=== PATIENT | female | born 1975 | race Caucasian/White ===

== ENCOUNTER → 2018-02-22 00:19 | Outpatient (CLI) | payer BC, SELFPAY ==
--- NOTE | 2018-02-22 07:34 | DI.REPORT_ITS ---
SYMPTOM/DIAGNOSIS: SCREENING, Z12.31, ANNUAL PHYSICAL EXAM Z00.00 BILATERAL SCREENING MAMMOGRAM: Mammograms were interpreted according to the usual protocol including computer analysis with CAD system, tomosynthesis and C view imaging. Comparison is made with 2016. The breasts are composed of scattered fibroglandular densities. Breast density category B. No suspicious masses or suspicious microcalcifications are seen. There has been no significant change. IMPRESSION: Category 1-B, negative mammogram. Routine screening is recommended. [facility] ASSESSMENT OF FINDINGS: Negative. Category 1. Patient will receive a letter notifying them of these results. BI-RADS category B. There are scattered areas of fibroglandular density.
--- NOTE | 2018-02-22 09:36 | DI.REPORT_ITS ---
SYMPTOM/DIAGNOSIS: NEW ONSET DYSMENORRHEA, MENORRHAGIA, EVALUATE FOR OVARIAN CYSTS FIBRO. PELVIC ULTRASOUND: Transabdominal and transvaginal exams were performed. The uterus measures 11.0 x 4.6 x 6.2 cm. The endometrial stripe measures 7 mm in thickness. There are 2 small uterine fibroids measuring 2.2 and 3.6 cm in greatest dimension. An 18 mm cyst vs involuting follicle is seen on the left ovary. Small Nabothian cysts and endometrial calcifications ae seen. There is no evidence of free fluid or hydronephrosis. IMPRESSION: Small uterine fibroids. Small involuting follicle of the left ovary.
== END ==
PROVIDERS: PCP Nurse Practitioner Family; Visit Provider Nurse Practitioner Family
DX: Z00.00 Encounter for general adult medical examination without abnormal findings (principal); Z12.31 Encounter for screening mammogram for malignant neoplasm of breast; N94.6 Dysmenorrhea, unspecified; N92.0 Excessive and frequent menstruation with regular cycle; D25.9 Leiomyoma of uterus, unspecified; N83.02 Follicular cyst of left ovary
CPT/HCPCS: 77063; 77067; 76830; 76856

== ENCOUNTER → 2018-02-22 01:37 | Outpatient (CLI) | payer BC, SELFPAY ==
[2018-02-22 08:45] LABS: Abs Immature Grans 0.01 k/cumm (0.0-0.09); Absolute Basophil Count 0.06 k/cumm (0.0-0.2); Absolute Eosinophil Count 0.34 k/cumm (0.0-0.7); Absolute Lymphocyte Count 2.41 k/cumm (1.2-3.4); Absolute Monocyte Count 0.64 k/cumm (0.11-0.7); Absolute Neutrophil Count 4.56 k/cumm (1.2-6.7); Basophils % 0.7; Eosinophils % 4.2; HGB 14.7 g/dL (12.0-15.5); Immature Grans % 0.1; Mean Corpuscular Volume 85.7 fL (80-95); Mean Platelet Volume 8.9 fL (8.0-11.0); Platelet Count 348 x1000/uL (130-400); RBC Distribution Width 13.2 % (11.7-14.6); White Blood Cell Count 8.02 k/cumm (4.4-10.8)
[2018-02-22 10:04] LABS: Anion Gap 13.1 mmol/L (3-11); BUN 17 mg/dL (7-18); CO2 24.9 mmol/L (21.0-32.0); CREATININE 0.81 mg/dL (0.55-1.02); Calcium 8.9 mg/dL (8.5-10.1); Chloride 102 mmol/L (98-107); Cholesterol 230 mg/dL (50-200); Glucose 88 mg/dL (70-100); HDL Cholesterol 61 mg/dL (40-60); LDL CHOLESTEROL 148 mg/dL (<100); Potassium 4.4 mmol/L (3.5-5.1); Sodium 140 mmol/L (136-145); TSH (W/Ref FT4) 1.48 uIU/mL (0.358-3.74); Triglyceride 92 mg/dL (30-150)
== END ==
PROVIDERS: PCP Nurse Practitioner Family; Visit Provider Nurse Practitioner Family
DX: Z00.00 Encounter for general adult medical examination without abnormal findings (principal); R53.83 Other fatigue
CPT/HCPCS: 36415; 80048; 80061; 83721; 84443; 85025

== ENCOUNTER 2018-06-11 11:49 | Outpatient (REF) | payer BC, SELFPAY ==
[2018-06-14 13:38] LABS: Chlamydia Result Negative; GC Result Negative; Specimen Description CERVIX
== END 2018-06-11 12:09 ==
LOC: LBN 11:49
PROVIDERS: PCP Nurse Practitioner Family; Visit Provider Nurse Practitioner Women's Health
DX: Z11.3 Encounter for screening for infections with a predominantly sexual mode of transmission (principal)
CPT/HCPCS: 87491; 87591

== ENCOUNTER 2019-03-23 01:27 | Outpatient (CLI) | payer BC, SELFPAY ==
--- NOTE | 2019-03-24 16:35 | NS.NUTBLAN_ITS ---
DESCRIPTION: Marielle Rollins presents for nutrition consult for hyperlipidemia although she states she would also like to lose weight. Self reports weight 150 pounds, height 64.5 BMI 25.3 Marielle reports cardiovascular risks as borderline hypertension, high cholesterol, overweight, high stress with 3 teens at home, and limited regular physical activity. Marielle reports weight management attempts with restricting sugar, carb and dairy. She has toast with butter/peanut butter and coffee with almond milk and flavored sweetener. Lunch: salad or progresso light soup; supper: chicken stir serna with 1 cup vegetables, 1 cup brown rice. She cooks meatless meal 1 night/week. She has popcorn with M&Ms if they watch a movie, once a week. She has an alcoholic beverage about twice a month when she goes out for dinner. She reports no regular physical activity at this time as her days are too full. ASSESSMENT/INTERVENTION: aMrielle is well informed about healthy eating and practices this feeding her family. Discussed stopping weight gain as first goal. Explained cardiovascular risks factors; cholesterol interpretation. Described and reviewed DASH and Mediterranean food plans. Discussed physical activity and ways to encorporate it into her regular day. PLAN: Marielle will increase vegetables to 2.5 cups daily; decrease butter at breakfast. consider alternative to coffee flavor in AM attempt increased physical activity while watching sports. She will be in touch in a month if this plan is not working for her.
== END 2019-03-23 01:47 ==
PROVIDERS: PCP Nurse Practitioner Family; Visit Provider Dietitian, Registered
DX: E78.5 Hyperlipidemia, unspecified (principal); Z71.3 Dietary counseling and surveillance
CPT/HCPCS: 97802

== ENCOUNTER 2019-04-06 00:55 | Outpatient (CLI) | payer BC, SELFPAY ==
--- NOTE | 2019-04-06 17:00 | DI.MAMMO_ITS ---
EXAM: MAMMO SCREENING CLINICAL HISTORY: screening z12.31,,. TECHNIQUE: Mammograms were interpreted according to the usual protocol including computer analysis w [employer] CAD system, tomosynthesis and C-view imaging. COMPARISON: Comparison is made with prior images. FINDINGS: The breast tissue is of moderate radiodensity. There is no evidence of a mass. There are no suspiciou s calcifications and there has been no significant interval change when compared with prior images. IMPRESSION: No evidence of malignancy, category 1. Yearly screening mammography is recommended. BI-RADS category B. BI-RADS Cat 1 - Negative. Breast Density - Category B - Scattered areas of fibroglandular density.
== END 2019-04-06 01:15 ==
PROVIDERS: PCP Nurse Practitioner Family; Visit Provider Nurse Practitioner Family
DX: Z12.31 Encounter for screening mammogram for malignant neoplasm of breast (principal)
CPT/HCPCS: 77063; 77067

== ENCOUNTER 2019-08-26 13:25 | Outpatient (REF) | payer BC, SELFPAY | END 2019-08-26 13:45 | LOC: LBN 13:25 | PROVIDERS: PCP Nurse Practitioner Family; Visit Provider Nurse Practitioner Family | DX: J06.9 Acute upper respiratory infection, unspecified (principal) | CPT/HCPCS: 87449 ==

== ENCOUNTER 2020-07-04 02:26 | Outpatient (CLI) | payer BC, SELFPAY ==
[2020-07-04 08:54] LABS: Anion Gap 6.4 mmol/L (3-11); BUN 17 mg/dL (7-18); CO2 28.6 mmol/L (21.0-32.0); CREATININE 0.88 mg/dL (0.55-1.02); Calcium 8.6 mg/dL (8.5-10.1); Calculated LDL 158 mg/dL (<100); Chloride 105 mmol/L (98-107); Cholesterol 246 mg/dL (<200); Glucose 98 mg/dL (74-106); HDL Cholesterol 69 mg/dL (40-60); Potassium 4.5 mmol/L (3.5-5.1); Sodium 140 mmol/L (136-145); Triglyceride 98 mg/dL (<150)
[2020-07-04 09:33] LABS: Hemoglobin A1C 5.5 % (<5.7)
== END 2020-07-04 02:46 ==
PROVIDERS: PCP Nurse Practitioner Family; Visit Provider Nurse Practitioner Family
DX: E78.5 Hyperlipidemia, unspecified (principal)
CPT/HCPCS: 36415; 80048; 80061; 83036

== ENCOUNTER 2020-07-09 01:22 | Outpatient (CLI) | payer BC, SELFPAY ==
--- NOTE | 2020-07-10 11:47 | DI.MAMMO_ITS ---
EXAM: MAMMO SCREENING CLINICAL HISTORY: SCREENING,Z12.39 TECHNIQUE: Mammograms were interpreted according to the usual protocol including computer analysis w [employer] CAD system, tomosynthesis and C-view imaging. COMPARISON: 2015 through 2018 FINDINGS: The breasts are composed of scattered fibroglandular densities, Breast Density category B. No suspicious masses or suspicious microcalcifications are seen. No skin thickening or abnormal axillary lymph nodes are seen. There has been no significant change from prior exams. IMPRESSION: BI-RADS Category 1, Negative mammogram Yearly screening mammography is recommended. Breast Density - Category B, scattered fibroglandular densities. A negative radiographic report should not delay biopsy if a dominant or clinically suspicious mass is present. Up to ten percent of cancers are not identified on mammography. A negative report may reinforce clinical impression. Adenosis and dense breasts may obscure an underlying neoplasm. False positive reports average 6 to 10%. Patient will receive a letter notifying them of these results.
== END 2020-07-09 01:42 ==
PROVIDERS: PCP Nurse Practitioner Family; Visit Provider Nurse Practitioner Family
DX: Z12.31 Encounter for screening mammogram for malignant neoplasm of breast (principal)
CPT/HCPCS: 77063; 77067

== ENCOUNTER 2020-08-13 08:56 | Outpatient (CLI) | payer BC, SELFPAY ==
[2020-08-14 12:35] LABS: COVID-19 RT-PCR UVMMC Result Negative (Negative)
== END 2020-08-13 09:16 ==
PROVIDERS: PCP Nurse Practitioner Family; Visit Provider Nurse Practitioner Family
DX: Z11.52 Encounter for screening for COVID-19 (principal); J02.9 Acute pharyngitis, unspecified
CPT/HCPCS: U0003

== ENCOUNTER 2020-08-28 07:30 | Outpatient (CLI) | payer BC, SELFPAY ==
[2020-08-29 13:28] LABS: COVID-19 RT-PCR UVMMC Result Negative (Negative)
== END 2020-08-28 07:31 | disposition home or self-care (01) ==
LOC: LBO 07:31
PROVIDERS: PCP Nurse Practitioner Family; Visit Provider Nurse Practitioner Family
DX: Z20.822 Contact with and (suspected) exposure to COVID-19 (principal)
CPT/HCPCS: U0003

== ENCOUNTER 2020-09-14 03:40 | Outpatient (CLI) | payer BC, SELFPAY ==
[2020-09-15 14:06] LABS: COVID-19 RT-PCR UVMMC Result Negative (Negative)
== END 2020-09-14 03:41 | disposition home or self-care (01) ==
LOC: LBO 03:40
PROVIDERS: PCP Nurse Practitioner Family; Visit Provider Nurse Practitioner Family
DX: Z20.822 Contact with and (suspected) exposure to COVID-19 (principal)
CPT/HCPCS: U0003

== ENCOUNTER 2021-01-31 14:44 | Outpatient (REF) | payer BC, SELFPAY ==
[2021-02-02 13:01] LABS: COVID-19 RT-PCR UVMMC Result Negative (Negative)
== END 2021-01-31 14:45 | disposition home or self-care (01) ==
LOC: LBN 14:44
PROVIDERS: PCP Nurse Practitioner Family; Visit Provider Physician Assistant
DX: Z20.822 Contact with and (suspected) exposure to COVID-19 (principal)
CPT/HCPCS: U0003

== ENCOUNTER 2021-07-11 02:19 | Outpatient (CLI) | payer BC, SELFPAY ==
--- NOTE | 2021-07-11 07:50 | DI.MAMMO_ITS ---
Exam(s) MAMMO SCREENING EXAM: MAMMO SCREENING CLINICAL HISTORY: screening,z12.39. TECHNIQUE: Bilateral full field digital CC and MLO mammographic images were obtained with 3D tomosyn thesis and utilizing computer aided detection (CAD). COMPARISON: Prior mammograms dating back to 2016, the most recent being June 2020. FINDINGS: There has been no significant change in the appearance and distribution of the fibroglandular tissue. Asymmetric tissue laterally in the left breast is unchanged from prior studies. There are no new spiculated masses nor malignant appearing microcalcification groups. There is no significant architectural distortion nor skin thickening-retraction. IMPRESSION: No radiographic evidence of malignancy. BI-RADS Category 1 - Negative Breast Density - Category B - Scattered areas of fibroglandular density Breast density Category C or D implies that the patient has dense breast tissue. Dense breast tissue can make it harder to find cancer on a mammogram. Dense breast tissue is also associated with an incr eased risk of breast cancer. This information about the result of the mammogram report was provided to the patient to raise their awareness. Use this report when you speak with the patient about their risks for breast cancer, which includes their family history. At that time, you may recommend additional screening tests (Ultrasoun d or MRI) as these tests may add significant information. A negative radiographic report should not delay biopsy if a dominant or clinically suspicious mass is present. Up to ten percent of cancers are not identified on mammography. A negative report may reinforce clinical impression. Adenosis and dense breasts may obscure an underlying neoplasm. False positive reports average 6 to 10%. Patient will receive a letter notifying them of these results.
== END 2021-07-11 02:39 ==
PROVIDERS: PCP Nurse Practitioner Family; Visit Provider Nurse Practitioner Family
DX: Z12.31 Encounter for screening mammogram for malignant neoplasm of breast (principal)
CPT/HCPCS: 77063; 77067

== ENCOUNTER 2021-07-15 13:57 | Outpatient (REF) | payer BC, SELFPAY ==
--- NOTE | 2021-07-15 13:10 | PAPFT_PTH ---
PATIENT: Marielle Rollins LOC: [facility] U#:[id number] AGE/SX: 45/F ROOM: RE07/15/[address]: Emani Oreilly NP : 1975 BED: DIS: 07/15/2021 SPEC #: [id number] RECD: 07/15/21 18:31 STATUS: LAKEMichael LEON #: [id number] TOPHER: 07/15/21 13:[address]: Emani Oreilly NP DEPT: [facility] Cytology RECD BY: Natalee Ignacio ENTERED: 07/15/21 18:31 SP TYPE: PAPFT OTHR DR: Beth Coles, BILINGUAL TRAINER Tissues: 1 - CX/ENDOCX FOR PAP SMEARS Procedures: PAP THIN PREP/UVM Screening HPV DNA PROBE Comments: [id number]
== END 2021-07-15 13:58 | disposition home or self-care (01) ==
LOC: LBN 13:57
PROVIDERS: PCP Nurse Practitioner Family; Visit Provider Nurse Practitioner Women's Health
DX: Z12.4 Encounter for screening for malignant neoplasm of cervix (principal); Z11.51 Encounter for screening for human papillomavirus (HPV)
CPT/HCPCS: 88142; 87624

== ENCOUNTER 2021-10-01 13:37 | Outpatient (REF) | payer BC, SELFPAY ==
[2021-10-03 12:03] LABS: COVID-19 RT-PCR UVMMC Result Negative (Negative)
== END 2021-10-01 13:38 | disposition home or self-care (01) ==
LOC: LBN 13:37
PROVIDERS: PCP Nurse Practitioner Family; Visit Provider Family Medicine
DX: Z20.822 Contact with and (suspected) exposure to COVID-19 (principal); R05.8 Other specified cough
CPT/HCPCS: U0003

== ENCOUNTER 2022-07-15 01:24 | Outpatient (CLI) | payer BC, SELFPAY ==
--- NOTE | 2022-07-15 06:45 | DI.MAMMO_ITS ---
Exam(s) MAMMO SCREENING EXAM: MAMMO SCREENING CLINICAL HISTORY: screening,Z12.39. TECHNIQUE: Bilateral full field digital CC and MLO mammographic images were obtained with 3D tomosyn thesis and utilizing computer aided detection (CAD). COMPARISON: Prior mammograms were reviewed. FINDINGS: There are no new significant radiograph findings in the right breast. In the left breast on the MLO view there is a new asymmetric density seen medial of center, this balwinder uring 4 x 2 millimeters and located 3 cm in from the nipple the MLO view. Additional imaging of this required. There are no malignant-appearing microcalcification groups in this region nor elsewhere in either ashlie ast. There is no significant architectural distortion nor skin thickening-retraction. IMPRESSION: 1. No radiographic evidence of malignancy in the right breast. 2. No asymmetric density-possible nodule in the left breast, as best seen on the MLO view, as describ ed above. Additional imaging including spot compression MLO view and left breast ultrasound recommen ded. BI-RADS Category 0 - Assessment Incomplete: Need additional imaging evaluation Breast Density - Category B - Scattered areas of fibroglandular density Breast density Category C or D implies that the patient has dense breast tissue. Dense breast tissue can make it harder to find cancer on a mammogram. Dense breast tissue is also associated with an incr eased risk of breast cancer. This information about the result of the mammogram report was provided to the patient to raise their awareness. Use this report when you speak with the patient about their risks for breast cancer, which includes their family history. At that time, you may recommend additional screening tests (Ultrasoun d or MRI) as these tests may add significant information. A negative radiographic report should not delay biopsy if a dominant or clinically suspicious mass is present. Up to ten percent of cancers are not identified on mammography. A negative report may reinforce clinical impression. Adenosis and dense breasts may obscure an underlying neoplasm. False positive reports average 6 to 10%. Patient will receive a letter notifying them of these results.
== END 2022-07-15 01:44 ==
LOC: DI 01:24
PROVIDERS: PCP Nurse Practitioner Family; Visit Provider Nurse Practitioner Family
DX: Z12.31 Encounter for screening mammogram for malignant neoplasm of breast (principal); R92.8 Other abnormal and inconclusive findings on diagnostic imaging of breast
CPT/HCPCS: 77063; 77067

== ENCOUNTER 2022-07-21 01:49 | Outpatient (CLI) | payer BC, SELFPAY ==
--- NOTE | 2022-07-21 | DI.MAMMO_ITS ---
Exam(s) MAMMO SCREEN CALL BACK UNI EXAM: MAMMO SCREEN CALL BACK UNI CLINICAL HISTORY: ASYMMETRIC DENSITY-POSSIBL NODULE LEFT BREAST, FU ABNL MAMMO R92.8 TECHNIQUE: MLO spot compression views with tomographic imaging were performed. COMPARISON: 2016 through recent exam of 15 July 2022 FINDINGS: No suspicious masses or suspicious microcalcifications are seen. No persistent abnormality is seen on the additional views performed. The findings in question on re cent exam are consistent with overlying vessels. There has been no significant change from prior exams. IMPRESSION: BI-RADS Category 1, Negative Yearly screening mammography is recommended. Breast Density - Category B, scattered fibroglandular densities.
== END 2022-07-21 02:09 ==
LOC: DI 01:49
PROVIDERS: PCP Nurse Practitioner Family; Visit Provider Nurse Practitioner Family
DX: Z12.31 Encounter for screening mammogram for malignant neoplasm of breast (principal)
CPT/HCPCS: 77063; 77067

== ENCOUNTER 2023-06-15 04:14 | Outpatient (CLI) | payer BC, SELFPAY ==
[2023-06-15 17:38] LABS: Anion Gap 8.1 mmol/L (3-11); BUN 18 mg/dL (7-18); CO2 27.9 mmol/L (21.0-32.0); CREATININE 0.8 mg/dL (0.55-1.02); Calcium 8.6 mg/dL (8.5-10.1); Calculated LDL 154 mg/dL (<100); Chloride 102 mmol/L (98-107); Cholesterol 241 mg/dL (<200); Estimated GFR 90.27 (mL/min/1.73m2); Glucose 98 mg/dL (74-106); HDL Cholesterol 66 mg/dL (40-60); Potassium 3.6 mmol/L (3.5-5.1); Sodium 138 mmol/L (136-145); Triglyceride 107 mg/dL (<150)
== END 2023-06-15 04:15 | disposition home or self-care (01) ==
LOC: LBO 04:15
PROVIDERS: PCP Nurse Practitioner Family; Visit Provider Nurse Practitioner Family
DX: Z00.00 Encounter for general adult medical examination without abnormal findings (principal)
CPT/HCPCS: 36415; 80048; 80061; 84443

== ENCOUNTER → 2023-07-20 01:57 | Outpatient (CLI) | payer BC, SELFPAY ==
--- NOTE | 2023-07-20 08:15 | DI.MAMMO_ITS ---
Exam(s) MAMMO SCREENING EXAM: MAMMO SCREENING CLINICAL HISTORY: screening,z12.39 TECHNIQUE: Bilateral full field digital CC and MLO mammographic images were obtained with 3D tomosyn thesis and utilizing computer aided detection (CAD). COMPARISON: Available for comparison. FINDINGS: Masses/Architectural Distortion: None seen. Microcalcifications: No suspicious pleomorphic-type are seen. Skin Thickening/Nipple Retraction: None. IMPRESSION: 1. No significant interval change with no specific features of malignancy noted. 2. Unless there is more urgent need, screening mammography is recommended, as per [employer] guidelines. BI-RADS Category 1 - Negative Breast Density - Category B - Scattered areas of fibroglandular density Breast density category C or D implies that the patient has dense breast tissue. Dense breast tissue is very common and is not abnormal but dense breast tissue can make it harder to find cancer on a ma mmogram. Also, dense breast tissue may increase their breast cancer risk. This information about the result of the mammogram report was provided to the patient to raise their awareness. Use this report when you speak with the patient about their risks for breast cancer, which includes their family hist ory. At that time, you may recommend for more screening tests (Ultrasound or MRI) as they might be us eful based on their risk. A negative radiographic report should not delay biopsy if a dominant or clinically suspicious mass is present. Up to ten percent of cancers are not identified on mammography. A negative report may reinforce clinical impression. Adenosis and dense breasts may obscure an underlying neoplasm. False positive reports average 6 to 10%. Patient will receive a letter notifying them of these results.
== END ==
PROVIDERS: PCP Nurse Practitioner Family; Visit Provider Nurse Practitioner Women's Health
DX: Z12.31 Encounter for screening mammogram for malignant neoplasm of breast (principal)
CPT/HCPCS: 77063; 77067

== ENCOUNTER 2023-09-14 06:17 | Day surgery (SDC) | payer BC, SELFPAY ==
--- NOTE | 2023-09-13 16:52 | W.ANESPRE ---
General Info Date of Service Date Performed: 09/14/23 Height: 5 ft 4 in Weight: 75.296 kg Body Mass Index (BMI): 28.5 Surgical Procedure: Operation Date: 09/14/23 07:35 Proposed Procedure Side Surgeon p Colonoscopy Stephan Larry MD Meds Allergies and Home Medications Allergies Allergy/AdvReac Type Severity Reaction Status Date / Time azithromycin AdvReac Mild vomitting Verified 09/14/23 06:26 seasona allergies Allergy Mild . Uncoded 09/14/23 06:26 Home Medication Medication Instructions Recorded [place]-3S/Dha/Epa/Fish Oil [Fish 1 ea PO DAILY 02/11/18 Oil 1,000 mg Softgel] levonorgestrel 21 mcg/24 hours (8 1 device intrauterine ONCE 02/23/19) 52 mg intrauterine device (Mirena) loratadine 10 mg tablet (Claritin) 10 mg PO DAILY 04/08/22 vitamin B complex (B 1 tab PO DAILY 12/22/22 Complex-Vitamin B12 tablet) escitalopram oxalate 20 mg tablet 20 mg PO DAILY #90 tabs 02/04/23 bisacodyl 5 mg tablet,delayed 5 mg PO ONCE colonscopy bowel prep 09/07/23 release (Dulcolax (bisacodyl)) #4 tabs polyethylene glycol 3350 17 238 g PO ONCE colonoscopy prep 09/07/23 gram/dose oral powder #238 grams Current Visit Medications: Current Medications Generic Name Dose Route Start Last Admin Trade Name Freq PRN Reason Stop Dose Admin Ringer's Solution 1,000 mls @ 80 mls/hr 09/14/23 06:00 IV 10/11/23 23:59 INFUSION LAVELL IV Miscellaneous Supplies 1 each 09/14/23 06:00 Iv Access IV 10/11/23 23:59 DIRECTED LAVELL Sodium Chloride 0 ml 09/14/23 06:00 Normal Saline Flush 10 Ml Syr IV 10/11/23 23:59 PRN PRN Sodium Chloride 0 ml 09/14/23 06:00 Normal Saline 10 Ml Vial IJ 10/11/23 23:59 DIRECTED PRN Sterile Water 0 ml 09/14/23 06:00 Water,Injection,Sterile 10 Ml Vial IJ 10/11/23 23:59 DIRECTED PRN PFSH Active Problems Active Problems: Problem Status Onset Code Chronic constipation K59.09 Major depressive disorder F32.9 Generalized anxiety disorder F41.1 Hyperlipidemia E78.5 IUD surveillance Z30.431 Insomnia G47.00 Medical History Medical History Abnormal uterine bleeding Menorrhagia, uterine leiomyomas. Mirena IUD for treatment Uterine leiomyoma Initiated OCPs with AUB relief 02/2018 Mirena inserted 06/11/18 Surgical History Surgical History S/P lumbar discectomy (~2011) Tobacco Smoking/Tobacco Use Status: Never Passive smoking exposure: No Second hand exposure: Yes Alcohol Alcohol Intake: current Alcohol intake frequency: a few times a month Alcohol type: wine and hard liquor Substance Use Substance use: Never Substance use type: does not use Prental History History 4 Para 3 Hx # Term Pregnancies Multiple births Hx # Pregnancies Ectopic pregnancies AB induced Hx Number of Living Children 3 AB spontaneous 1 Vital Signs and Lab Results Vital Signs Most Recent Vital Signs in EMR: Temp Pulse Resp BP Pulse Ox 36.5 C 68 16 126/79 99 09/14/23 06:30 09/14/23 06:30 09/14/23 06:30 09/14/23 06:30 09/14/23 06:30 Lab Results Blood Type / Crossmatch: No Data to Display Complete Blood Count: No Data to Display Complete Metabolic Panel: No Data to Display Liver Function Panel: No Data to Display Coagulation Panel: No Data to Display Cardiac Panel: No Data to Display Arterial Blood Gas: No Data to Display Venous Blood Gas: No Data to Display Pancreas Panel: No Data to Display Thyroid Panel: No Data to Display Infectious Disease: No Data to Display Blood Cultures: No Data to Display Toxicology Panel: No Data to Display Panel: No Data to Display Anesthesia Assessment and Plan Anesthesia History Personal History: No History of Anesthesia Complications Family History: No Family History of Anesthesia Complications Exercise Tolerance Exercise Tolerance: Metabolic Equivalents>4 Cardiac & Pulmonary Exam Cardiac Exam: Normal S1/S2 Heart Sounds Pulmonary Exam: Clear Bilateral Breath Sounds Implantable Cardiac Device Does patient have a Pacemaker or an ICD?: No Airway Exam Known Difficult Airway: No Mallampati Class: 3 Mouth Opening: Narrow (< 3cm) Thyromental Distance: Greater than 3 cm Neck Range of Motion: Full ROM Neck Circumference: Normal Teeth Condition: Normal Dentition ASA Classification ASA Score: ASA 2 Emergency Case?: No NPO Status NPO Status: NPO Clears >2 hours, Solids >8 hours Status Status: Negative HCG Anesthesia Plan Resuscitation Status: Full Code Anesthesia Technique: General Anesthesia Airway Planned: Natural Airway Monitors Used: Standard Monitors Preoperative Comments:: 47 yo female for colo. Sig PMHx: depression/anxiety, never smoker, occ EtOH.
--- NOTE | 2023-09-13 20:35 | W.COLOREPORT ---
Date of service: 09/14/23 Time of Service: 08:00 Colonoscopy Report Procedure Description: Procedures: 1. Colonoscopy 2. Cold forceps polypectomy Pre-op Diagnosis: Screening colonoscopy Post-op Diagnosis: Rectal polyp, grade 1 internal hemorrhoids Surgeon: Thien Larry Assist: None Anesthesia: Anesthesia monitoring Indication: Asymptomatic screening colonoscopy, no family history of colon cancer. Findings: Normal terminal ileum. No colon polyps. No diverticular disease. 1 small hyperplastic?appearing polyp in the rectum was removed with cold forceps technique. Grade 1 internal hemorrhoids. Complications: None EBL: Minimal Surveillance recommendations: 10 years as long as the polyp proved to be hyperplastic or a simple adenoma. Specimens removed: Yes Grafts or implants: None Prep: Excellent Procedure in detail: Written consent was obtained from the patient who was in agreement with the risks, the benefits and the indications for the procedure. The patient was taken to the endoscopy suite and laid in the left lateral decubitus position with knees bent. We performed a timeout. When we were all in agreement anesthesia was administered and we began the procedure. Visual and digital perianal/rectal exam was performed. This was within normal limits. The colonoscope was introduced and passed without difficulty all the way to the cecum. The appendiceal orifice and ileocecal valve were identified. The terminal ileum was briefly intubated and appeared normal. The scope was then slowly pulled back, carefully inspecting all of the colonic mucosa and recesses. Retroflexion was performed in the rectum. There were pathological findings and/or interventions as noted above. The colonoscope was then removed, the patient tolerated the procedure well and was then taken to the PACU in hemodynamically stable condition.
--- NOTE | 2023-09-13 20:38 | W.PM.DSUDISC ---
Date of service: 09/14/23 Time of Service: 08:15 Discharge Plan Disposition Patient Disposition: Home Condition: Good Discharge Details Attending Provider: Stephan Larry Primary Care Provider: Beth Coles Home Meds and New Rx's Prescriptions: No Action Mirena 20 mcg/24 hours (5 yrs) 52 mg intrauterine device 1 device IY ONCE Patient Comments: Inserted 06/11/18 loratadine [Claritin] 10 mg tablet 10 mg PO DAILY escitalopram oxalate 20 mg tablet 20 mg PO DAILY Qty: 90 3RF polyethylene glycol 3350 17 gram/dose powder 238 g PO ONCE Qty: 238 0RF Rx Instructions: take per colonoscopy instructions bisacodyl [Dulcolax (bisacodyl)] 5 mg tablet,delayed release (DR/EC) 5 mg PO ONCE Qty: 4 0RF Rx Instructions: take per colonoscopy instructions vitamin B complex [B Complex-Vitamin B12] Tablet 1 tab PO DAILY [place]-3S/Dha/Epa/Fish Oil [Fish Oil 1,000 mg Softgel] 1 EACH capsule 1 ea PO DAILY Discharge Instructions Additional Instructions: FINDINGS: Your colon and rectum appear healthy. A very small polyp was found and removed today. This is why we do the colonoscopy. It is nothing to worry about. You probably should repeat another colonoscopy in 10 years. Stand Alone Forms: Anesthesia Discharge Inst., Colonoscopy Post Instructions, Dayo Mendoza (DSU) Activity:: Activity as Tolerated Diet:: As Tolerated
[2023-09-14 06:30] VITALS: BP 126/79; PULSE 68; RESP 16; TEMP 36.5; O2SAT 99
[2023-09-14 07:11] VITALS: BMI 28.5
[2023-09-14] MEDS: Lactated Ringers 1,000 ML 80 ML IV (07:14)
--- NOTE | 2023-09-14 08:03 | BOWEL_PTH ---
PATIENT: Marielle Rollins LOC: [facility] U#:[id number] AGE/SX: 47/F ROOM: RE09/14/[address]: Stephan Larry : 1975 BED: DIS: 09/14/2023 SPEC #: [id number] RECD: 09/14/23 12:39 STATUS: DONALDO RE #: [id number] TOPHER: 09/14/23 08:[address]: Stephan Larry DEPT: Surgical Specimen RECD BY: Natalee Ignacio ENTERED: 09/14/23 12:40 SP TYPE: Bowel OTHR DR: SENDY Hood Tissues: 1 - BIOPSY BOWEL Procedures: GROSS AND MICRO LEVEL 4 Comments: [id number]
[2023-09-14 08:10] VITALS: BP 104/53; PULSE 61; RESP 16; TEMP 36.3; O2SAT 100
--- NOTE | 2023-09-14 08:16 | W.ANESPOSTOP ---
Postoperative Evaluation Date, Time and Location Date Performed: 09/14/23 Time Performed: 08:16 Patient Location: Day Surgery Unit Vital Signs Most Recent Imported Vital Signs: Most Recent Vital Signs Temp Pulse Resp BP Pulse Ox 36.3 C L 61 16 104/53 L 100 09/14/23 08:10 09/14/23 08:10 09/14/23 08:10 09/14/23 08:10 09/14/23 08:10 Pain Score Most Recent Pain Score: Most Recent Pain Score Pain Level 0 09/14/23 08:10 Assessment Mental Status: Awake (Alert & Oriented to Patient Baseline) Airway and Respiratory Function: Patent airway with normal (patient baseline) respiratory exam Cardiovascular Function: Hemodynamically Stable Hydration Status: Adequately Hydrated Nausea & Vomiting: No Nausea or Vomiting Pain: Pt. Denies Any Pain Peripheral Nerve Block: Patient did not receive a nerve block
[2023-09-14 08:42] VITALS: BP 126/83; PULSE 52; RESP 18; TEMP 36.5; O2SAT 100
== END 2023-09-14 09:02 | disposition home or self-care (01) ==
LOC: SUR 06:17
PROVIDERS: PCP Nurse Practitioner Family; Visit Provider Student in an Organized Health Care Education/Training Program
PROC: 0DJD8ZZ Inspection of Lower Intestinal Tract, Via Natural or Artificial Opening Endoscopic (ICD-10-PCS; CPT 45378; principal; 2023-09-14 07:30)
DX: Z12.11 Encounter for screening for malignant neoplasm of colon (principal); K62.1 Rectal polyp; K64.0 First degree hemorrhoids
CPT/HCPCS: 45380; 00123; 81025; 88305; J2704

== ENCOUNTER → 2023-11-11 02:08 | Outpatient (CLI) | payer BC, SELFPAY ==
--- NOTE | 2023-11-11 09:50 | DI.MRI_ITS ---
Exam(s) MR LUMBAR SPINE WO EXAM: MR LUMBAR SPINE WO CLINICAL HISTORY: lt lumbar radiculopathy,? herniated disc,M54.16. TECHNIQUE: Multiplanar multisequence MRI of the Lumbar spine was performed. COMPARISON: MR MRI - LUMBAR SPINE WO CONTRAST from 01/09/2010 FINDINGS: Conus medullaris is at normal level. There is no evidence of conus mass nor subjacent clumping of in trathecal nerve roots to suggest arachnoiditis. The distal thecal sac appears unremarkable.There is no evidence of Tarlov intrasacral cysts nor other significant findings within the sacral canal Bones:There are no fractures nor ominous osseous lesions in the lumbar vertebral bodies and visualize d sacrum. With respect to the individual levels... T12-L1: Unremarkable L1-2: Normal disc height and signal. No disc herniation nor central canal stenosis.No foraminal steno sis L2-3: Normal disc height. No disc herniation nor central canal stenosis.No foraminal stenosis.No face t arthropathy. L3-4: Normal disc height. No disc herniation or central canal stenosis.No foraminal stenosis.No face t arthropathy. L4-5: Normal disc height and signal. No disc herniation or central canal stenosis. No significant f acet arthropathy. No foraminal stenosis. L5-S1: This level exhibits relatively preserved disc height. However, there is again noted a promine nt posterolateral left disc herniation, as was evident in 2009.. This is left paracentral and appointment coordinator olateral and occupies the left lateral recess causing local mass effect upon the thecal sac and nerve roots at this level. The size of this disc herniation has not decreased from 2010 MRI study extends posteriorly approximately 1 cm and is 1.5 cm wide. It does not appear to extend significantly into the exiting left neural foramen. No obvious foraminal stenosis on either side. Facet joints appear unremarkable at this level. Soft tissues: There is a cyst in the left ovary which measures approximately 2.6 x 2.1 cm. IMPRESSION: 1. At L5-S1 level there is again noted a prominent posterolateral left disc protrusion which occupies the lateral recess exhibiting some mass effect at this level, extending posteriorly 10 mm and approx imately 15 mm wide (but not extending appreciably into the exiting left neural foramen). This large left-sided disc herniation was also evident on the prior MRI scan of December 2009 (14 years ago). There is no disc height loss at this level. 2. No other disc herniations evident. No canal nor foraminal stenosis at the other levels. 3. There is no facet arthropathy in the lumbosacral spinal column. DATA REPOSITORY:
== END ==
PROVIDERS: PCP Nurse Practitioner Family; Visit Provider Nurse Practitioner Family
DX: M54.16 Radiculopathy, lumbar region (principal)
CPT/HCPCS: 72148

== ENCOUNTER 2023-11-19 16:37 | Outpatient (CLI) | payer BC, SELFPAY ==
--- NOTE | 2023-11-19 13:00 | DI.RAD_ITS ---
Exam(s) XR PAIN CLINIC LUMBAR SP 2V EXAM: XR PAIN CLINIC LUMBAR SP 2V CLINICAL HISTORY: Dx: Lumbar Radiculopathy. TECHNIQUE: Fluoroscopy was provided for the referring physician for guidance with performing pain cl inic injection procedure. COMPARISON: No exams were available for comparison FINDINGS: Please see procedure note for details. Fluoro time: 24.3 seconds RADIATION DOSE DELIVERED: Ka,r=11.72 mGy
[2023-11-19 13:07] VITALS: BP 148/102; PULSE 75; RESP 20; TEMP 36.7; O2SAT 97
--- NOTE | 2023-11-19 13:38 | PDOC.PAIN_ITS ---
Date of service: 11/19/23 Time of Service: 13:38 Pain Managment Procedure Note Procedure Note Procedure Note: PROCEDURE NOTE CAUDAL EPIDURAL STEROID INJECTION Date of Service: November 19, 2023 Patient:? Marielle Rollins? Provider:? Zia Estrada DO, MPH Marielle Rollins has [facility] for caudal epidural steroid injection.? Pre-operative diagnosis: Lumbosacral Radiculopathy Post-operative diagnosis: Same Pre-Procedure Pain: VAS= 10/10. COMMENTS: I evaluated her in the clinic earlier today. She is in severe pain down the left L5 nerve distribution. Iselawas interviewed and the medical record was reviewed.? There were no medical, pharmacologic, radiographic or other structural contraindications to attempting fluoroscopically guided epidural steroid injection.? Risks and expected side effects as well as potential benefit of the procedure were reviewed with Isela, and the patient's voiced concerns were addressed.? The printed consent form was signed.? Standard time-out procedure was performed. Isela was placed in the prone position on the fluoroscopy table and automated blood pressure cuff and pulse oximeter applied.? The skin entry point for ent ering/approaching the epidural space by a caudal approach through the sacral hiatus ed identified with surgical skin marking.? Following thorough chlorhexidine preparation of the skin and draping and 1% lidocaine infiltration of the skin entry point and subcutaneous tissues, a 17 gauge Touhy needle was placed under fluoroscopic guidance? into the epidural space. Needle tip placement and depth were aided and confirmed by fluoroscopy in the lateral and AP position. There was no paresthesia or return of blood or CSF through the needle. 1 cc of Omnipaque 240 was injected with clear epidural spre ad confirmed with fluoroscopy. An Arrow 19G radio-opaque epidural catheter was advanced into the epidural space to the L5 level and 2 cc of Omnipaque 240 was injected with clear epidural spread. 80 mg of Depo-Medrol was? injected. There was no unusual discomfort expressed by Marielle. The needle and catheter were then flushed with 1 cc of 1% Lidocaine and they were removed together without difficulty (49 cc of Omnipaque was wasted). Marielle was observed and was without hemodynamic, neurologic, or allergic reactions.? Fluoroscopic images were digitally archived. Marielle's vital signs were stable throughout the procedure and were as recorded in the docflowsheet by the nursing staff.? If given, dosages of intravenous drugs for anxiolysis and analgesia were documented in MAR. Follow up plans and appointments were discussed with Marielle.? Post procedure instruction was given as documented in nursing documentation and having met discharge criteria, Mar[facility]. ? COMMENTS: No apparent complications.? Post-procedure pain: VAS= 2/10. If the patient receives at least 50% improvement in pain and/or function for at least 3 months, this procedure can be repeated. I personally completed the entire procedure. ZIA ESTRADA DO, MPH ABPM&R - Subspecialty board certification in Pain Medicine [facility]
[2023-11-19 13:41] VITALS: BP 143/97; PULSE 66; RESP 17; O2SAT 100
[2023-11-19] MEDS: Nerve Block Tray 1 EACH MC (13:46)
[2023-11-19] MEDS: methylPREDNISolone ACETATE 80 MG/ML VIAL IJ (13:46)
[2023-11-19] MEDS: Omnipaque 240 MG/ML 50 ML BTL IJ (13:47)
[2023-11-19] MEDS: Normal Saline 20 ML VIAL 10 ML IJ (13:49)
== END 2023-11-19 16:38 | disposition home or self-care (01) ==
LOC: PC 16:37
PROVIDERS: PCP Nurse Practitioner Family; Visit Provider Preventive Medicine Occupational Medicine
DX: M54.17 Radiculopathy, lumbosacral region (principal)
CPT/HCPCS: 62323; 72100; J1010; Q9967

== ENCOUNTER 2023-12-14 13:55 | Outpatient (CLI) | payer BC, SELFPAY ==
--- NOTE | 2023-12-14 14:00 | RT.EKG_ITS ---
APPROVED REPORT Exam: Resting ECG Reason for Exam: preop clearance Patient Location: O HR:64 bpm ECG Measurements Heart Rate 64 AXIS SC 146 P 60 QRSd 98 QRS 50 QT 430 T 52 QTc 444 Conclusion Sinus rhythm...normal P axis, V-rate 50- 99 Normal Electrocardiogram
== END 2023-12-14 13:56 | disposition home or self-care (01) ==
PROVIDERS: PCP Nurse Practitioner Family; Visit Provider Nurse Practitioner Family
DX: Z01.818 Encounter for other preprocedural examination (principal)
CPT/HCPCS: 93005; 93010

== ENCOUNTER 2023-12-15 10:18 | Outpatient (CLI) | payer BC, SELFPAY ==
[2023-12-15 12:30] LABS: Abs Immature Grans 0.01 10^3/uL (0.0-0.06); Absolute Basophil Count 0.05 10^3/uL (0.0-0.2); Absolute Eosinophil Count 0.13 10^3/uL (0.0-0.7); Absolute Lymphocyte Count 2.42 10^3/uL (1.2-3.4); Absolute Monocyte Count 0.59 10^3/uL (0.1-0.8); Absolute Neutrophil Count 3.39 10^3/uL (1.2-6.7); Basophils % 0.8 %; HGB 14.8 g/dL (11.2-15.7); Immature Grans % 0.2 %; Lymphocytes % 36.7 %; MCH 30.7 pg (27.0-33.0); MCHC 34.4 % (32.0-36.0); MCV 89 fL (80-95); MPV 9.2 fL (8.0-11.0); Neutrophils % 51.3 %; Platelet Count 298 10^3/uL (130-400); RBC 4.82 10^6/uL (3.93-5.22); RDW 13.4 % (11.7-14.6); RDW-SD 43.8 fL; WBC 6.59 10^3/uL (4.4-10.8)
[2023-12-15 12:59] LABS: ALT 61 U/L (14-59); AST 38 U/L (15-37); Albumin 4.2 g/dL (3.4-5.0); Alkaline Phosphatase 56 U/L (46-116); Anion Gap 10.6 mmol/L (3-11); BUN 15 mg/dL (7-18); Bilirubin, Total 0.5 mg/dL (0.2-1.0); CO2 26.4 mmol/L (21.0-32.0); CREATININE 0.8 mg/dL (0.55-1.02); Calcium 8.9 mg/dL (8.5-10.1); Chloride 104 mmol/L (98-107); Estimated GFR 89.71 (mL/min/1.73m2); Glucose 97 mg/dL (74-106); Potassium 3.8 mmol/L (3.5-5.1); Sodium 141 mmol/L (136-145); Total Protein 7.2 g/dL (6.4-8.2)
== END 2023-12-15 10:19 | disposition home or self-care (01) ==
LOC: LOS 10:18
PROVIDERS: PCP Nurse Practitioner Family; Referring Provider Nurse Practitioner Family; Visit Provider Nurse Practitioner Family
DX: Z01.818 Encounter for other preprocedural examination (principal)
CPT/HCPCS: 36415; 80053; 85025

== ENCOUNTER 2024-07-21 02:47 | Outpatient (CLI) | payer BC, SELFPAY ==
--- NOTE | 2024-07-21 08:30 | DI.MAMMO_ITS ---
Exam(s) MAMMO SCREENING EXAM: MAMMO SCREENING CLINICAL HISTORY: screening,Z12.39 TECHNIQUE: Bilateral full field digital CC and MLO mammographic images were obtained with 3D tomosyn thesis and utilizing computer aided detection (CAD). COMPARISON: Available for comparison. FINDINGS: Masses/Architectural Distortion: None seen. Microcalcifications: No suspicious pleomorphic-type are seen. Skin Thickening/Nipple Retraction: None. IMPRESSION: 1. No significant interval change with no specific features of malignancy noted. 2. Unless there is more urgent need, screening mammography is recommended, as per [employer] guidelines. BI-RADS Category 1 - Negative Breast Density - Category B - Scattered areas of fibroglandular density Breast density category C or D implies that the patient has dense breast tissue. Dense breast tissue is very common and is not abnormal but dense breast tissue can make it harder to find cancer on a ma mmogram. Also, dense breast tissue may increase their breast cancer risk. This information about the result of the mammogram report was provided to the patient to raise their awareness. Use this report when you speak with the patient about their risks for breast cancer, which includes their family hist ory. At that time, you may recommend for more screening tests (Ultrasound or MRI) as they might be us eful based on their risk. A negative radiographic report should not delay biopsy if a dominant or clinically suspicious mass is present. Up to ten percent of cancers are not identified on mammography. A negative report may reinforce clinical impression. Adenosis and dense breasts may obscure an underlying neoplasm. False positive reports average 6 to 10%. Patient will receive a letter notifying them of these results.
== END 2024-07-21 03:07 ==
LOC: DI 02:47
PROVIDERS: PCP Nurse Practitioner Family; Visit Provider Nurse Practitioner Family
DX: Z12.31 Encounter for screening mammogram for malignant neoplasm of breast (principal); R92.323 Mammographic fibroglandular density, bilateral breasts
CPT/HCPCS: 77063; 77067

== ENCOUNTER 2024-11-09 15:41 | Outpatient (REF) | payer BC, SELFPAY | END 2024-11-09 15:42 | disposition home or self-care (01) | LOC: LBN 15:41 | PROVIDERS: PCP Nurse Practitioner Family; Visit Provider Nurse Practitioner Women's Health | DX: N76.0 Acute vaginitis (principal) | CPT/HCPCS: 87480; 87510; 87660 ==

== ENCOUNTER 2025-06-19 14:25 | Outpatient (CLI) | payer BC, SELFPAY ==
[2025-06-19 16:01] LABS: Abs Immature Grans 0.03 10^3/uL (0.0-0.06); HCT 43.2 % (36.0-46.0); HGB 14.2 g/dL (11.2-15.7); Immature Grans % 0.4 %; MCH 29.3 pg (27.0-33.0); MCHC 32.9 % (32.0-36.0); MCV 89 fL (80-95); MPV 8.8 fL (8.0-11.0); Platelet Count 382 10^3/uL (130-400); RBC 4.85 10^6/uL (3.93-5.22); RDW 12.7 % (11.7-14.6); RDW-SD 41.7 fL; WBC 8.15 10^3/uL (4.4-10.8)
[2025-06-19 16:02] LABS: Hemoglobin A1C 5.4 % (<5.7)
[2025-06-19 16:07] LABS: Vitamin D 25 Total 22 ng/mL (30-100)
[2025-06-19 16:08] LABS: Ferritin 43 ng/mL (7-271); TSH (W/Ref FT4) 0.79 uIU/mL (0.55-4.78); Vitamin B12 448 pg/mL (211-911)
[2025-06-19 17:50] LABS: ALT 34 U/L (10-49); AST 33 U/L (<34); Albumin 4.8 g/dL (3.2-5.0); Alkaline Phosphatase 95 U/L (46-116); Anion Gap 7.8 mmol/L (3-11); BUN 14 mg/dL (9-23); Bilirubin, Total 0.30 mg/dL (0.2-1.2); CO2 31.2 mmol/L (20.0-31.0); Calcium 9.7 mg/dL (8.3-10.6); Chloride 103 mmol/L (98-107); Cholesterol 250 mg/dL (<200); Glucose 87 mg/dL (74-106); HDL Cholesterol 75 mg/dL (>40); Potassium 4.0 mmol/L (3.5-5.1); Sodium 142 mmol/L (136-145); Total Protein 7.8 g/dL (5.7-8.2)
[2025-06-20 00:55] LABS: Hepatitis C Ab w Rflx HCV PCR Negative (Negative)
[2025-06-20 00:56] LABS: HBs Antibody, Quant <3.1 mIU/mL (See Note); Hepatitis B Surface Antigen Negative (Negative)
[2025-06-20 19:35] LABS: HIV-1/2 Ag & Ab Screen Negative (Negative)
== END 2025-06-19 14:26 | disposition home or self-care (01) ==
LOC: LOS 14:26
PROVIDERS: PCP Nurse Practitioner Family; Visit Provider Nurse Practitioner Family
DX: R53.83 Other fatigue (principal); Z11.59 Encounter for screening for other viral diseases; R22.33 Localized swelling, mass and lump, upper limb, bilateral; Z11.4 Encounter for screening for human immunodeficiency virus [HIV]
CPT/HCPCS: 36415; 80053; 80061; 82306; 86704; 86706; 86803; 87340; 87389; 82607; 82728; 83036; 84443; 85025

== ENCOUNTER → 2025-06-29 00:12 | Outpatient (CLI) | payer BC, SELFPAY ==
--- NOTE | 2025-06-29 07:30 | DI.US_ITS ---
APPROVED REPORT EXAM: Comprehensive 2D, Doppler, and color-flow Echocardiogram Patient Location: Out-Patient Customer Assistance Representative: Spring Pacheco RDCS (AE) Indications: Systolic murmur Other Information Study Quality: Good Conclusion Normal left-ventricular wall thickness and chamber size. Ejection fraction is 60%. Wall motion is normal Normal right ventricular size and function Both atria are normal in size There is no structural or hemodynamically significant valvular disease Normal estimated right ventricular systolic pressure 18 mmHg Wall motion Left Ventricle The left ventricle is normal size. The left ventricular systolic function is normal. The left ventricular ejection fraction is within the normal range. There is normal left ventricular wall thickness. There is normal LV segmental wall motion. There is no ventricular septal defect visualized. LVEF is 60%. Right Ventricle The right ventricle is normal size. The right ventricular systolic function is normal. Atria The left atrium size is normal. The right atrium size is normal. The interatrial septum is intact with no evidence for an atrial septal defect. Aortic Valve The aortic valve is normal in structure. Aortic valve is trileaflet. There is no aortic valvular stenosis. No aortic regurgitation is present. Mitral Valve The mitral valve is normal in structure. No evidence of mitral valve stenosis. Trace mitral regurgitation. Tricuspid Valve The tricuspid valve is normal in structure. There is no tricuspid valve stenosis. Trace tricuspid regurgitation. The RVSP is 18.1 mmHg. Pulmonic Valve The pulmonary valve is normal in structure. There is no pulmonic valvular stenosis. There is no pulmonic valvular regurgitation. Great Vessels The aortic root is normal in size. The ascending aorta is normal in size. Aortic arch is normal in caliber. IVC is normal in size and collapses >50% with inspiration. Pericardium There is no pericardial effusion. 2D Dimensions IVSD d PLAX 0.90 cm F: 0.6-1.0 Ao Root d 2.63 cm F: 2.7 - 3.3 LVPW d PLAX 0.90 cm F: 0.6 - 1.0 Ao Asc Diam d 2.77 cm F: 2.3 - 3.1 LVID d PLAX 4.20 cm F: 3.8 - 5.2 LVDs 2.90 cm F: 2.2 - 3.5 LV EF Teichholz 60.1 % FS 31.69 % LV EDV (Teich) 78.7 mL LV ESV (Teich) 31.4 mL M-Mode TAPSE 2.28 cm (M/F) >1.7 Auto EF LV EDV A4C 95.4 mL LV EDV A2C 101.4 mL LV EDV BP 98.4 mL LV ESV A4C 40.6 mL LV ESV A2C 42.8 mL LV ESV BP 41.1 mL LVEF(%) A4C 57.4 % LVEF(%) A2C 57.8 % LVEF(%) BP 58.2 % LV SV A4C 54.8 ml LV SV A2C 58.7 ml LV SV BP 57.3 ml LV CO A4C 4.4 L/min LV CO A2C 4.5 L/min LV CO BP 4.5 L/min HR A4C 81.08 BPM HR A2C 76.11 BPM LV EDV Index (BP) LA Volume LA Length A4C 5.0 cm LA Length A2C 4.1 cm LA Area A4C s 15.39 cm2 LA Area A2C s 12.70 cm2 LA Vol A4C A-L 40.11 mL LA Vol A2C A-L 33.49 mL LA Vol Biplane A-L 40.6 mL LA Vol/BSA A4C A-L LA Vol/BSA A2C A-L LA Vol/BSA BP A-L 22.5 mL/m2 LA Vol A4C MOD 37.3 mL LA Vol A2C MOD 31.0 mL LA Vol BP MOD 37.4 mL RA Volume RA Area A4C 10.4 cm2 RA ESV A4C (A-L) 23.8mL RA Vol/BSA A4C A-L RA Length A4C 3.9 cm RA ESV A4C (MOD) 22.5mL LV Diastology MV E' medial 0.087 (>0.07 m/s) MV E Vmax 0.78 (0.4-1.3 m/s) MV E/E' MED 8.87 (<14) MV A Vmax 0.75 (0.4-1.3 m/s) MV E' lateral 0.113 (>0.1 m/s) E/A Ratio 1.0 MV E/E' LAT 6.85 (<14) MV E' Average 0.100 m/s MV E/E'(average) 7.73 Aortic Valve AoV Vmax 1.48 m/s LVOT Vmax 1.24 m/s AoV Peak Grad 8.7 mmHg LVOT Peak Grad 6.1 mmHg AoV Area (Vmax) 2.30 cm2 LVOT VTI 0.249 m AoV VTI 0.305 m LVOT Mean Grad 3.4 mmHg AoV Mean Srinivas. 1.04 m/s LVOT SV 68.35 mL AoV Mean Grad 4.9 mmHg LVOT Diam s 1.85 cm AoV Area (VTI) 2.24 cm2 AV Regurg Peak Gr. 8.72 mmHg Velocity Ratio 0.84 Mitral Valve MV DT 210 (160-240 msec) MV Vmax TIPS 0.83 m/s MV Mean Grad 1.3 (<2mmHg) MV VTI 0.268 m Pulmonary Valve PV Vmax 1.31 (0.5-1.5 m/s) RVOT Vmax 0.95 m/s PV Peak Grad 6.9 mmHg RVOT Peak Gr. 3.6 mmHg PV Mean Srinivas 0.87 m/s RVOT VTI 0.199 m PV Mean Grad 3.6 mmHg RVOT Mean Gr. 1.9 mmHg Tricuspid Valve RA Pressure 3.00 mmHg TR Vmax 1.94 m/s TV S' 0.15 m/s TR Peak Grad 15.0 mmHg RVSP (TR) 18.1 mmHg
== END ==
LOC: DI 00:12
PROVIDERS: PCP Nurse Practitioner Family; Visit Provider Nurse Practitioner Family
DX: R01.1 Cardiac murmur, unspecified (principal)
CPT/HCPCS: 93306

== ENCOUNTER 2025-07-11 00:25 | Outpatient (CLI) | payer BC, SELFPAY ==
[2025-07-11 13:05] LABS: ESR 8 mm/hr (0-30)
[2025-07-11 13:06] LABS: Abs Immature Grans 0.02 10^3/uL (0.0-0.06); HCT 39.3 % (36.0-46.0); HGB 13.7 g/dL (11.2-15.7); Immature Grans % 0.2 %; MCH 30.8 pg (27.0-33.0); MCHC 34.9 % (32.0-36.0); MCV 88 fL (80-95); MPV 8.1 fL (8.0-11.0); Platelet Count 343 10^3/uL (130-400); RBC 4.45 10^6/uL (3.93-5.22); RDW 12.3 % (11.7-14.6); RDW-SD 39.5 fL; WBC 8.33 10^3/uL (4.4-10.8)
[2025-07-11 22:45] LABS: CRP, High Sensitivity 11.53 mg/L (See Note)
[2025-07-12 11:30] LABS: Lyme Ab w Rflx to Lyme Confirm Negative (Negative)
[2025-07-14 15:53] LABS: B. miyamotoi PCR Negative (Negative); Babesia divergens/MO-1 Negative (Negative); Ehrlichia muris eauclairensis Negative (Negative)
== END 2025-07-11 00:26 | disposition home or self-care (01) ==
LOC: LBO 00:25
PROVIDERS: Physician Assistant; PCP Nurse Practitioner Family; Visit Provider Student in an Organized Health Care Education/Training Program
DX: M25.50 Pain in unspecified joint (principal)
CPT/HCPCS: 36415; 85652; 86141; 87798; 85025; 86038; 86060; 86431; 86618